=== PATIENT | female | born 1955 | race Caucasian/White ===

== ENCOUNTER 2020-12-28 13:14 | Outpatient (CLI) | payer MEDICARE, SELFPAY | END 2020-12-28 13:15 | disposition home or self-care (01) | LOC: ANHCOVIDVC 13:14 | PROVIDERS: PCP Family Medicine | DX: Z23 Encounter for immunization (principal) | CPT/HCPCS: 0001A; 91300 ==

== ENCOUNTER 2021-01-18 13:14 | Outpatient (CLI) | payer MEDICARE, SELFPAY | END 2021-01-18 13:15 | disposition home or self-care (01) | LOC: ANHCOVIDVC 13:15 | PROVIDERS: PCP Family Medicine | DX: Z23 Encounter for immunization (principal) | CPT/HCPCS: 0002A; 91300 ==

== ENCOUNTER → 2021-02-13 03:01 | Outpatient (CLI) | payer MEDICARE, SELFPAY ==
[2021-02-13 18:14] LABS: SARS-CoV-2 RNA PCR Negative
== END ==
PROVIDERS: PCP Family Medicine; Visit Provider Obstetrics & Gynecology Gynecology
DX: Z01.812 Encounter for preprocedural laboratory examination (principal); Z20.822 Contact with and (suspected) exposure to COVID-19
CPT/HCPCS: C9803; U0003; U0005

== ENCOUNTER 2021-02-16 01:51 | Day surgery (SDC) | payer MEDICARE, SELFPAY ==
[2021-02-09 12:25] VITALS: BMI 56.9
[2021-02-16] MEDS: ACETAMINOPHEN 500 MG TABLET 1000 MG PO (10:45)
[2021-02-16 11:09] VITALS: BP 151/81; PULSE 84; TEMP 36.3; O2SAT 98
[2021-02-16] MEDS: LACTATED RINGERS 1,000 ML 30 ML IV CONT ×2 (11:10→13:14)
[2021-02-16 11:31] LABS: Glucose Point of Care 150 mg/dl (65-105)
--- NOTE | 2021-02-16 11:40 | WPDANESEPPF ---
Anes - Initial Pre Proc Eval Procedure: Operation Date: 02/16/21 12:15 Proposed Procedures p Hysteroscopy Dilation and Curettage - Ruthie Darden MD Date/Time: 02/16/21 11:40 Surgeon: Ruthie Darden MD Pre Op Diagnosis: post menopausal bleeding Patient Data Age: 65 Gender: F Height: 5 ft 8 in Weight: 156 kg Last Vital Signs Temp 36.3 C L 02/16/21 11:09 Pulse 84 02/16/21 11:09 BP 151/81 H 02/16/21 11:09 Pulse Ox 98 02/16/21 11:09 Allergies Allergy/AdvReac Type Severity Reaction Status Date / Time Penicillins Allergy Unknown Rash Verified 02/16/21 10:30 Home Medications Medication Instructions Recorded Confirmed Type blood sugar diagnostic #100 each 07/12/20 Rx lisinopril 2.5 mg tablet See Rx Instructions .ROUTE 08/27/20 02/16/21 Rx .COMPLEX #90 tablet calcium carbonate-vitamin D3 1 tablet PO DAILY 02/09/21 02/16/21 History [Calcium 600 + D(3)] cetirizine [Zyrtec] 10 mg PO DAILY 02/09/21 02/16/21 History fluticasone propionate 2 spray NASAL DAILY 02/09/21 02/16/21 History Laboratory Tests 02/16/21 11:29 POC Capillary Glucose 150 mg/dl H mg/dl (65-105) Patient hx anesthesia problems: none Family hx anesthesia problems: none PMFSH Past Medical History Medical History Asthma Depression Diabetes mellitus Hypertension MVP (mitral valve prolapse) Obstructive sleep apnea Family History Family History Other Carcinoma of colon Family history of thyroid disease Hypertension Social History Social History Smoking packs per day: 1 Smoking cigarettes per day: 20.0 Years smoked: 5 Smoking pack-years: 5.00 Smoking status: Never smoker Tobacco type: cigarettes Second hand tobacco smoke exposure: No Smoking end date: 09/15/79 Alcohol intake: never Living arrangements: alone Spiritual care concerns: No Anes - Eval Final PreProcedure Day of Procedure 02/16/21 11:40 Patient weight: super morbidly obese Heart: regular rate and rhythm Lungs: clear to auscultation Airway: Mallampati scale class II Neurological: alert and oriented Last oral intake: >/= 8 hours ASA classification: III Emergent: no Anesthetic plan: proceed Anesthesia type and monitoring: general GIVS and standard monitoring Informed Consent: The patient's anesthetic plan and its attendant risks and benefits were discussed with the patient/family/POA. Questions were solicited and answers provided to the satisfaction of the patient/family/POA.
--- NOTE | 2021-02-16 12:08 | WPDHPUPDATE1 ---
History and Physical Update Update Date/Time: 02/16/21 12:08 History and Physical has been reviewed, including an updated exam of the patient. There are NO changes in the patient's condition. Risks, benefits, and alternatives have been discussed and questions answered. Patient agrees to proceed with procedure.
--- NOTE | 2021-02-16 12:08 | PM.HPGS ---
History of Present Illness History of Present Illness Consent: Risks, benefits, and alternatives have been discussed and questions answered. Patient agrees to proceed with procedure. Chief complaint: post menopausal bleeding Narrative: Tonie Cummings is a 65 year old female who was new to me February 08, 2021 in the office. She reports 1 year of spotting on and off and then the week prior to seeing me had 2 days of very heavy bleeding. The patient's primary care provider suggested and November of 2020 that she see a dermatology nurse practitioner but the patient declined at that time. She called when she had the onset of heavier bleeding. The patient reports no other complaints. Was recommended that the patient proceed with D&C hysteroscopy. Risks of infection, bleeding, and perforation were reviewed. Possible pathology was discussed. The patient voices understanding and agrees to proceed. Review of Systems Gastrointestinal: Gastrointestinal: Reports abdominal pain Genitourinary: Genitourinary: Reports other (incontinence) Musculoskeletal: Musculoskeletal: Reports arthralgias PMFSH Past Medical History Medical History (Updated 02/16/21 @ 12:13 by Ruthie Darden MD) Asthma Depression Diabetes mellitus Hypertension MVP (mitral valve prolapse) Obstructive sleep apnea Surgical History Surgical History (Updated 02/16/21 @ 12:12 by Ruthie Darden MD) H/O breast biopsy 2018 benign Family History Family History Other Carcinoma of colon Family history of thyroid disease Hypertension Social History Social History Smoking packs per day: 1 Smoking cigarettes per day: 20.0 Years smoked: 5 Smoking pack-years: 5.00 Smoking status: Never smoker Tobacco type: cigarettes Second hand tobacco smoke exposure: No Smoking end date: 09/15/79 Alcohol intake: never Living arrangements: alone Spiritual care concerns: No Meds Home Medications and Allergies Home Medications Medication Instructions Recorded Confirmed Type blood sugar diagnostic #100 each 07/12/20 Rx lisinopril 2.5 mg tablet See Rx Instructions .ROUTE 08/27/20 02/16/21 Rx .COMPLEX #90 tablet calcium carbonate-vitamin D3 1 tablet PO DAILY 02/09/21 02/16/21 History [Calcium 600 + D(3)] cetirizine [Zyrtec] 10 mg PO DAILY 02/09/21 02/16/21 History fluticasone propionate 2 spray NASAL DAILY 02/09/21 02/16/21 History Allergies Allergy/AdvReac Type Severity Reaction Status Date / Time Penicillins Allergy Unknown Rash Verified 02/16/21 10:30 Vital Signs Vital Signs - 24 hr 02/16/21 11:09 Temperature 97.4 F L Pulse Rate 84 Blood Pressure 151/81 H Pulse Oximetry 98 Exam Const: General: no acute distress : External Female Exam: normal external appearance Speculum Exam - Vagina: normal appearance of the vagina Speculum Exam - Cervix: Nulliparous cervix present Bimanual exam- vagina & uterus: normal bimanual exam Bimanual Exam- Adnexa, other: normal adnexae Assessment and Plan Assessment and plan (1) Post-menopausal bleeding: Code(s): N95.0 - Postmenopausal bleeding Status: Acute Assessment and Plan: plan to proceed with hysteroscopy with D&C
[2021-02-16] MEDS: KETOROLAC 30 MG/ML VIAL (*BKC) IV PUSH (12:54)
--- NOTE | 2021-02-16 13:09 | PM.PROC ---
Procedure Note - Detailed Date of procedure: 02/16/21 Pre-op diagnosis: post menopausal bleeding Post-op diagnosis: same Procedure performed: D and C hysteroscopy with MyoSure resection Description of procedure: The patient was taken to the operating room and placed under anesthesia in the dorsal lithotomy position. She was prepped and draped in the usual sterile fashion. The bivalve speculum was placed in the vagina and the cervix grasped on the anterior lip with a tenaculum. The cervix is injected with lidocaine in each quadrant and dilated with Hegar 6. The uterus is sounded to 8cm. The diagnostic hysteroscope was placed with the stated findings. The MyoSure device is opened and placed. Under direct visualization the polyps are removed as well as the thickened area at the fundus. The MyoSure device is removed the sharp curette is used to sharply curette the endometrium until a good uterine cry was noted in all areas. The instruments are removed. The sponge, instrument, and needle counts are correct per the OR staff. Anesthesia: MAC and local Surgeon: Ruthie Darden MD Estimated blood loss (mL): 5 Drains: No Packing: No Pathology: yes (Endometrial curettings and shaving) Complications: No immediate complications Condition: stable Disposition: PACU Findings: Large polyp filling the left half of the endometrium cavity with a smaller polyp on the right sidewall; thickened area at the fundus
[2021-02-16 13:14] VITALS: BP 141/86; PULSE 66; RESP 14; O2SAT 96
[2021-02-16 13:45] VITALS: BP 125/72; PULSE 60; O2SAT 98
[2021-02-16 14:15] VITALS: BP 147/78; PULSE 61
[2021-02-16 14:45] VITALS: BP 150/81; PULSE 56
== END 2021-02-16 14:52 | disposition home or self-care (01) ==
PROVIDERS: PCP Family Medicine; Visit Provider Obstetrics & Gynecology Gynecology
PROC: 0U5B8ZZ Destruction of Endometrium, Via Natural or Artificial Opening Endoscopic (ICD-10-PCS; CPT 58563; principal; 2021-02-16 12:15)
DX: N95.0 Postmenopausal bleeding (principal); N85.01 Benign endometrial hyperplasia; G43.909 Migraine, unspecified, not intractable, without status migrainosus; F32.9 Major depressive disorder, single episode, unspecified; E11.9 Type 2 diabetes mellitus without complications; I34.1 Nonrheumatic mitral (valve) prolapse; G47.33 Obstructive sleep apnea (adult) (pediatric); Z87.891 Personal history of nicotine dependence; E66.01 Morbid (severe) obesity due to excess calories; Z68.43 Body mass index [BMI] 50.0-59.9, adult; I10 Essential (primary) hypertension
CPT/HCPCS: 58558; 82948; 88305; A9270; J1885; J2250; J3010; J7030; J7120

== ENCOUNTER 2021-04-04 14:12 | Outpatient (CLI) | payer MEDICARE, SELFPAY ==
--- NOTE | ~2021-04-04 | MM_ITS ---
EXAMINATION: MM screening [facility] BI w milly HISTORY: Screening TECHNIQUE: Craniocaudal and mediolateral oblique 3-D tomosynthesis images were obtained and synthetic 2-D images were generated. CAD analysis was submitted and interpreted. COMPARISON: Comparison to multiple prior studies sequentially, with oldest reviewed study dated 10/14. BREAST PARENCHYMAL COMPOSITION: There are scattered areas of fibroglandular density. FINDINGS: There are benign bilateral breast calcifications. There is no evidence of suspicious mass, calcification, or architectural distortion to suggest malignancy in either breast. There has been no suspicious interval change. IMPRESSION: 1. No mammographic evidence of malignancy. 2. Recommend routine screening mammography in one year. BI-RADS Category 1: Negative Reviewed, dictated and finalized at location A.
== END 2021-04-04 14:13 | disposition home or self-care (01) ==
LOC: ANHIMG 14:15
PROVIDERS: PCP Family Medicine; Visit Provider Obstetrics & Gynecology Gynecology
DX: Z12.31 Encounter for screening mammogram for malignant neoplasm of breast (principal)
CPT/HCPCS: 77063; 77067

== ENCOUNTER → 2022-01-15 00:23 | Outpatient (CLI) | payer MEDICARE, SELFPAY ==
[2022-01-15 11:39] LABS: SARS-CoV-2 RNA PCR Negative
== END ==
PROVIDERS: PCP Family Medicine; Visit Provider Family Medicine
DX: R50.9 Fever, unspecified (principal); Z20.822 Contact with and (suspected) exposure to COVID-19
CPT/HCPCS: C9803; U0003; U0005

== ENCOUNTER 2022-03-08 12:06 | Emergency (ER) | payer MEDICARE, SELFPAY ==
[2022-03-08 12:15] VITALS: BP 126/76; PULSE 77; RESP 18; TEMP 36.2; O2SAT 100
--- NOTE | 2022-03-08 12:58 | ED.SKABFB ---
HPI - Skin/Abscess/Foreign Bdy General Chief complaint: Skin/Abscess/Foreign Body Stated complaint: insect bite on chest Time Seen by Provider: 03/08/22 12:59 Source: patient, RN notes reviewed and old records reviewed Mode of arrival: ambulatory Limitations: no limitations History of Present Illness HPI narrative: 66 year old female presents to [facility] with complaints of insect bite to her right chest which she noticed this morning. Patient has 1cm scabbed wound to her right upper chest which is itchy and has total area of redness of 8cm X8cm. Patient reports that area is itchy and borrego. Patient reports that she does not know what type of insect bit her or exactly when this occurred. MD complaint: insect bite/sting Related Data Home Medications Medication Instructions Recorded Confirmed calcium carbonate 600 mg-vitamin 1 tablet PO DAILY 02/09/21 03/08/22 D3 10 mcg (400 unit) tablet (Calcium 600 + D(3)) cetirizine 10 mg tablet (Zyrtec) 10 mg PO DAILY 02/09/21 03/08/22 Allergies Allergy/AdvReac Type Severity Reaction Status Date / Time Penicillins Allergy Mild Rash Verified 03/08/22 12:08 Review of Systems Review of Systems: CONSTITUTIONAL: Denies fever, chills, or sweats. EYES: Denies visual changes, redness, or discharge. ENT: Denies rhinorrhea, congestion, sore throat, or otalgia. CARDIOVASCULAR: Denies chest pain, palpitations, or edema. RESPIRATORY: Denies cough or dyspnea. GASTROINTESTINAL: Denies abdominal pain, nausea, vomiting, or diarrhea. GENITOURINARY: Denies dysuria or hematuria. SKIN: Insect bite to right upper chest with surrounding redness with itching. MUSCULOSKELETAL: Denies back pain, joint pain, or myalgia. NEUROLOGIC: Denies headache, numbness, or weakness. PSYCHIATRIC: Denies anxiety or depression. All systems reviewed & are unremarkable except as noted in HPI and below PMFSH Past Medical History Medical History Allergic rhinitis Asthma Depression Diabetes mellitus Hypertension MVP (mitral valve prolapse) Obesity, morbid, BMI 50 or higher Obstructive sleep apnea Surgical History Surgical History H/O breast biopsy 2018 benign H/O left nephrectomy H/O total hysterectomy Family History Family History Other Carcinoma of colon Family history of thyroid disease Hypertension Social History Social History Smoking packs per day: 1 Smoking cigarettes per day: 20.0 Years smoked: 5 Smoking pack-years: 5.00 Smoking status: Former smoker Tobacco type: cigarettes Second hand tobacco smoke exposure: No Smoking end date: 09/15/79 Alcohol intake: never Substance use: never Substance use type: does not use Spiritual care concerns: No Comments At time of signature, agree with nursing past medical, surgical, social and family history. There is no relevant family history pertinent to the presenting complaint Exam Narrative: GENERAL: Well-appearing, well-nourished, obese and in no acute distress. HEAD: Normocephalic, atraumatic. EYES: PERRLA and EOMI. ENT: Nares clear, no rhinorrhea or epistaxis. Mucous membranes moist.TM's normal with good light reflex, throat pink with no lesions or exudates, no tonsil enlargement NECK: Supple.no lymphadenopathy CHEST: Clear to auscultation. No respiratory distress.SAO2 100% on room air HEART: Regular rate and rhythm. No murmur heard. Normal peripheral pulses. ABDOMEN: Soft, nontender, nondistended, normal active bowel sounds. EXTREMITIES: Normal range of motion. No edema. SKIN: Warm, dry, 1cm round scabbed lesion to right upper chest with total area of surrounding redness 8cm X 8cm with no induration of tissue or welping, itching NEURO: No focal deficits. Alert and oriented x3. Course Course Level
== END 2022-03-08 13:18 | disposition home or self-care (01) ==
PROVIDERS: Emergency Provider Registered Nurse; PCP Family Medicine
DX: L03.313 Cellulitis of chest wall (principal); S20.361A Insect bite (nonvenomous) of right front wall of thorax, initial encounter; W57.XXXA Bitten or stung by nonvenomous insect and other nonvenomous arthropods, initial encounter; Z87.891 Personal history of nicotine dependence; J45.909 Unspecified asthma, uncomplicated; E11.9 Type 2 diabetes mellitus without complications; I10 Essential (primary) hypertension; I34.1 Nonrheumatic mitral (valve) prolapse; E66.01 Morbid (severe) obesity due to excess calories; Z68.43 Body mass index [BMI] 50.0-59.9, adult; G47.33 Obstructive sleep apnea (adult) (pediatric); Z90.5 Acquired absence of kidney
CPT/HCPCS: 99213; G0463

== ENCOUNTER 2022-03-10 14:26 | Emergency (ER) | payer MEDICARE, SELFPAY ==
[2022-03-10 14:33] VITALS: BP 123/74; PULSE 73; RESP 18; TEMP 36.2; O2SAT 98
--- NOTE | 2022-03-10 14:57 | ED.GENADULT ---
HPI - General Adult General Chief complaint: Allergic Reaction Stated complaint: allergic reaction Time Seen by Provider: 03/10/22 14:40 History of Present Illness HPI narrative: 66-year-old female presenting to the emergency department for evaluation of allergic drug rash secondary to Bactrim. Patient was noticed to have a bug bite on her right chest a few days ago. Patient had follow-up with her primary care physician was started on Bactrim. Patient had no prior known allergies to Bactrim. Patient states after taking the Bactrim yesterday she did have increased rash on her arms and chest. Patient did not take any Bactrim today and states she has had an improvement of the rash. Patient denies any chest pain or shortness of breath. Patient denies any associated nausea vomiting diarrhea. Patient did not take any Benadryl for her Bactrim drug rash. Patient states that the bug bite to the right chest has improved as far as the surrounding erythema has minimized but she does have a central white core that is present but has also shrunk in size. Related Data Home Medications Medication Instructions Recorded Confirmed calcium carbonate 600 mg-vitamin 1 tablet PO DAILY 02/09/21 03/08/22 D3 10 mcg (400 unit) tablet (Calcium 600 + D(3)) cetirizine 10 mg tablet (Zyrtec) 10 mg PO DAILY 02/09/21 03/08/22 Allergies Allergy/AdvReac Type Severity Reaction Status Date / Time Penicillins Allergy Mild Rash Verified 03/10/22 14:43 sulfamethoxazole AdvReac Hives Verified 03/10/22 14:44 [From Bactrim] trimethoprim [From Bactrim] AdvReac Hives Verified 03/10/22 14:44 Review of Systems Review of Systems: CONSTITUTIONAL: Denies fever, chills, or sweats. EYES: Denies visual changes, redness, or discharge. ENT: Denies rhinorrhea, congestion, sore throat, or otalgia. CARDIOVASCULAR: Denies chest pain, palpitations, or edema. RESPIRATORY: Denies cough or dyspnea. GASTROINTESTINAL: Denies abdominal pain, nausea, vomiting, or diarrhea. GENITOURINARY: Denies dysuria or hematuria. SKIN: See HPI MUSCULOSKELETAL: Denies back pain, joint pain, or myalgia. NEUROLOGIC: Denies headache, numbness, or weakness. [facility] Past Medical History Medical History Allergic rhinitis Asthma Depression Diabetes mellitus Hypertension MVP (mitral valve prolapse) Obesity, morbid, BMI 50 or higher Obstructive sleep apnea Surgical History Surgical History H/O breast biopsy 2018 benign H/O left nephrectomy H/O total hysterectomy Family History Family History Other Carcinoma of colon Family history of thyroid disease Hypertension Social History Social History Smoking packs per day: 1 Smoking cigarettes per day: 20.0 Years smoked: 5 Smoking pack-years: 5.00 Smoking status: Former smoker Tobacco type: cigarettes Second hand tobacco smoke exposure: No Smoking end date: 09/15/79 Alcohol intake: never Substance use: never Substance use type: does not use Spiritual care concerns: No Exam Narrative: APPEARANCE: Well appearing, no pain, no distress, well-nourished. HEAD: normocephalic, atraumatic. EYES: PERRLA/EOMI, conjunctivae clear. NOSE: Normal no drainage THROAT: Pharynx clear, no exudate. NECK: Supple. No adenopathy, no masses. RESPIRATORY: Airway patent, respirations nonlabored. Clear to auscultation bilaterally, no rales, rhonchi, wheezing. CARDIOVASCULAR: Regular rate and rhythm without murmurs rubs or gallops. ABDOMINAL: Soft, nontender, nondistended, normal bowel sounds MUSCULOSKELETAL: Moves all extremities. Strength/ROM intact, No edema, No calf tenderness. NEURO: Alert. Cranial nerves II through XII intact. SKIN: Cellulitic appearing rash to right chest PSYCHIATRIC: Normal affect/m
[2022-03-10] MEDS: CEPHALEXIN 250 MG CAPSULE PO (15:15)
== END 2022-03-10 15:19 | disposition home or self-care (01) ==
PROVIDERS: Emergency Provider Emergency Medicine; PCP Family Medicine
DX: L27.0 Generalized skin eruption due to drugs and medicaments taken internally (principal); T36.8X5A Adverse effect of other systemic antibiotics, initial encounter; L03.313 Cellulitis of chest wall; J45.909 Unspecified asthma, uncomplicated; E11.9 Type 2 diabetes mellitus without complications; I10 Essential (primary) hypertension; I34.1 Nonrheumatic mitral (valve) prolapse; G47.33 Obstructive sleep apnea (adult) (pediatric); E66.01 Morbid (severe) obesity due to excess calories; Z68.43 Body mass index [BMI] 50.0-59.9, adult
CPT/HCPCS: 99283; A9270

== ENCOUNTER 2022-06-19 09:18 | Outpatient (CLI) | payer MEDICARE, SELFPAY ==
--- NOTE | ~2022-06-19 | DEXA_ITS ---
Bone Density Report Name: NIMCO GORE Age: 67 Sex: Female Ethnicity: White Date of : 1955 Indication: postmenopausal; screening for osteoporosis; height loss; hysterectomy; Referring Provider: LILY VILLANUEVA Study: Bone densitometry was performed. Exam Date: June 19, 2022 Accession number: [id number] Bone Density: Region BMD T-score Z-score Classification AP Spine(L1-L4) 1.086 0.4 2.4 Normal Femoral Neck (Left) 0.677 -1.5 0.2 Osteopenia Total Hip (Left) 0.940 0.0 1.4 Normal Femoral Neck (Right) 0.749 -0.9 0.9 Normal Total Hip (Right) 0.955 0.1 1.6 Normal Total Hip Mean 0.948 0.1 1.5 Normal World Health Organization criteria for BMD impression classify patients as: Normal (T-score at or above -1.0), Osteopenia (T-score between -1.0 and -2.5), or Osteoporosis (T-score at or below -2.5). 10-year Fracture Risk(1): Major Osteoporotic Fracture 8.4% Hip Fracture 1.0% Reported Risk Factors: [place] (), Neck BMD=0.677, BMI=43.2 Input outside FRAX(R) limits. Adjusted to:Sjfmtx=298 kg (1) FRAX(R) Version 3.08. Fracture probability calculated for an untreated patient. Fracture probability may be lower if the patient has received treatment. Previous Exams: Region Exam Age BMD T-score BMD Change BMD Change Date g/cm2 vs Baseline vs Previous AP Spine (L1-L4) 06/19/2022 67 1.086 0.4 -0.012 (-1.1%) -0.012 (-1.1%) 06/08/2019 64 1.098 0.5 Total Hip(Left) 06/19/2022 67 0.940 0.0 -0.319 (-25.3% -0.319 (-25.3% 06/08/2019 64 1.259 2.6 Total Hip(Right) 06/19/2022 67 0.955 0.1 -0.055 (-5.4%) -0.055 (-5.4%) 06/08/2019 64 1.009 0.6 *Denotes significance at 95% confidence level, LSC for AP Spine = 0.022 g/cm2, LSC for Total Hip = 0.027 g/cm2 # Denotes dissimilar scan types or analysis methods Clinical Information Provided by Patient: Has the following medical conditions: Hysterectomy Patient maximum height was 69.5 Menopause Age: 61 No regular weight bearing exercise Onset of menses at age 9 Number of children 0 Impression: The patient has low bone mass, based on the Left Femoral Neck T-score. The patient has an estimated ten-year risk of hip fracture of 1% and an estimated ten-year risk of major fracture of 8.4%, based on the WHO FRAX algorithm. No significant bone loss was observed. Discussion: BONE DENSITY IS LOW AT ONE OR MORE SKELETAL SITES. This patient's lowe
--- NOTE | ~2022-06-19 | MM_ITS ---
EXAMINATION: MM screening [facility] BI w milly HISTORY: Screening mammogram TECHNIQUE: Craniocaudal and mediolateral oblique 3-D tomosynthesis images were obtained and synthetic 2-D images were generated. CAD analysis was submitted and interpreted. COMPARISON: 04/04/2021, 04/29/2018, 04/23/2018, 10/23/2012, 10/14/2012 BREAST PARENCHYMAL COMPOSITION: There are scattered areas of fibroglandular density. FINDINGS: Scattered benign-appearing calcifications are present. No suspicious mass, calcification, o r architectural distortion are identified in either breast to suggest malignancy. There has been no s uspicious interval change. IMPRESSION: 1. No mammographic evidence of malignancy. 2. Recommend routine screening mammography in one year. BI-RADS Category 2: Benign finding(s). Reviewed, dictated and finalized at location A.
== END 2022-06-19 09:19 | disposition home or self-care (01) ==
PROVIDERS: PCP Family Medicine; Visit Provider Obstetrics & Gynecology Gynecology
DX: Z12.31 Encounter for screening mammogram for malignant neoplasm of breast (principal); Z78.0 Asymptomatic menopausal state; M85.88 Other specified disorders of bone density and structure, other site; M85.852 Other specified disorders of bone density and structure, left thigh
CPT/HCPCS: 77063; 77067; 77080

== ENCOUNTER 2023-01-02 01:30 | Day surgery (SDC) | payer MEDICARE, SELFPAY ==
[2022-12-26 14:58] VITALS: BMI 56.0
[2023-01-02 12:05] VITALS: BP 122/76; PULSE 73; RESP 18; TEMP 36.4; O2SAT 97
[2023-01-02 12:19] VITALS: BMI 56.6
[2023-01-02] MEDS: LACTATED RINGERS 1,000 ML 150 ML IV CONT (12:34)
[2023-01-02 12:35] LABS: Glucose Point of Care 155 mg/dl (65-105)
--- NOTE | 2023-01-02 12:40 | PM.HPGS ---
History of Present Illness History of Present Illness Consent: Risks, benefits, and alternatives have been discussed and questions answered. Patient agrees to proceed with procedure. Chief complaint: history of polyp of colon Narrative: Tonie Cummings is a 67 year old female Presents for screening colonoscopy. Patient has a history of colon polyps most recently 2018. Patient has a family history of colon cancer in her father. Currently patient reports that her bowel habits are normal. She denies abdominal pain. She has had no bleeding. Patient presents today for surveillance screening colonoscopy. Patient's past history is significant for both uterine and bladder cancer. Review of Systems Review of Systems: Review of systems noncontributory. [facility] Past Medical History Medical History Allergic rhinitis Asthma Chronic renal insufficiency, stage III (moderate) Depression Diabetes mellitus Hypertension MVP (mitral valve prolapse) Obesity, morbid, BMI 50 or higher Obstructive sleep apnea Surgical History Surgical History H/O breast biopsy 2018 benign H/O left nephrectomy H/O total hysterectomy Family History Family History Other Carcinoma of colon Family history of thyroid disease Hypertension Social History Social History Smoking packs per day: 1 Smoking cigarettes per day: 20.0 Years smoked: 5 Smoking pack-years: 5.00 Smoking status: Former smoker Tobacco type: cigarettes Second hand tobacco smoke exposure: No Smoking end date: 09/15/79 Alcohol intake: current Alcohol use details: rarely Substance use: never Substance use type: does not use Living arrangements: alone Spiritual care concerns: No Meds Home Medications and Allergies Home Medications Medication Instructions Recorded Confirmed Type calcium carbonate 600 mg-vitamin 1 tablet PO BID 02/09/21 01/02/23 History D3 10 mcg (400 unit) tablet (Calcium 600 + D(3)) cetirizine 10 mg tablet (Zyrtec) 10 mg PO DAILY 02/09/21 01/02/23 History blood sugar diagnostic (FreeStyle #100 ea 07/18/22 12/24/22 Rx Lite Strips) fluticasone propionate 50 2 spray intranasal DAILY 12/26/22 01/02/23 History mcg/actuation nasal spray,suspension lisinopril 2.5 mg tablet 2.5 mg PO DAILY 12/26/22 01/02/23 History magnesium 500 mg tablet 500 mg PO DAILY 12/26/22 12/26/22 History multivitamin with minerals-folic 1 tablet PO DAILY 12/26/22 01/02/23 History acid 0.4 mg tablet Allergies Allergy/AdvReac Type Severity Reaction Status Date / Time Penicillins Allergy Mild Rash Verified 01/02/23 12:15 sulfamethoxazole AdvReac Hives Verified 01/02/23 12:15 [From Bactrim] trimethoprim [From Bactrim] AdvReac Hives Verified 01/02/23 12:15 Exam Narrative: Physical exam reveals patient to be alert. Vital signs stable. HEENT exam is unremarkable. Patient is anicteric. Lungs are clear to auscultation and percussion. Heart is without murmur or extra sounds. Abdomen is obese. Bowel sounds are present soft nontender with no organomegaly. Digital external rectal exam is normal. Assessment and Plan Assessment and plan (1) Family history of colon cancer in father: Code(s): Z80.0 - Family history of malignant neoplasm of digestive organs Status: Acute Assessment and Plan: Patient's father had colon cancer. For this reason screening colonoscopy at 5 year intervals is advised. (2) History of colon polyps: Code(s): Z86.010 - Personal history of colonic polyps Status: Acute Assessment and Plan: Patient has been found to have colon polyps on previous colonoscopy. Most recently 2018. Plan for surveillance colonoscopy at 5 year intervals.
--- NOTE | 2023-01-02 12:54 | WPDANESEPPF ---
Anes - Initial Pre Proc Eval Procedure: Operation Date: 01/02/23 13:30 Proposed Procedures p Colonoscopy - Rhys Lee MD Date/Time: 01/02/23 12:54 Surgeon: Rhys Lee MD Pre Op Diagnosis: history of polyp of colon Patient Data Age: 67 Gender: F Height: 1.73 m Weight: 169 kg Allergies Allergy/AdvReac Type Severity Reaction Status Date / Time Penicillins Allergy Mild Rash Verified 01/02/23 12:15 sulfamethoxazole AdvReac Hives Verified 01/02/23 12:15 [From Bactrim] trimethoprim [From Bactrim] AdvReac Hives Verified 01/02/23 12:15 Home Medications Medication Instructions Recorded Confirmed Type calcium carbonate 600 mg-vitamin 1 tablet PO BID 02/09/21 01/02/23 History D3 10 mcg (400 unit) tablet (Calcium 600 + D(3)) cetirizine 10 mg tablet (Zyrtec) 10 mg PO DAILY 02/09/21 01/02/23 History blood sugar diagnostic (FreeStyle #100 ea 07/18/22 12/24/22 Rx Lite Strips) fluticasone propionate 50 2 spray intranasal DAILY 12/26/22 01/02/23 History mcg/actuation nasal spray,suspension lisinopril 2.5 mg tablet 2.5 mg PO DAILY 12/26/22 01/02/23 History magnesium 500 mg tablet 500 mg PO DAILY 12/26/22 12/26/22 History multivitamin with minerals-folic 1 tablet PO DAILY 12/26/22 01/02/23 History acid 0.4 mg tablet Laboratory Tests 01/02/23 12:32 POC Capillary Glucose 155 mg/dl H mg/dl (65-105) Patient hx anesthesia problems: none Family hx anesthesia problems: none Results Review: All pre-operative results and documents have been reviewed as part of the pre-operative evaluation. [facility] Past Medical History Medical History Allergic rhinitis Asthma Chronic renal insufficiency, stage III (moderate) Depression Diabetes mellitus Hypertension MVP (mitral valve prolapse) Obesity, morbid, BMI 50 or higher Obstructive sleep apnea Surgical History Surgical History H/O breast biopsy 2018 benign H/O left nephrectomy H/O total hysterectomy Family History Family History Other Carcinoma of colon Family history of thyroid disease Hypertension Social History Social History Smoking packs per day: 1 Smoking cigarettes per day: 20.0 Years smoked: 5 Smoking pack-years: 5.00 Smoking status: Former smoker Tobacco type: cigarettes Second hand tobacco smoke exposure: No Smoking end date: 09/15/79 Alcohol intake: current Alcohol use details: rarely Substance use: never Substance use type: does not use Living arrangements: alone Spiritual care concerns: No Anes - Eval Final PreProcedure Day of Procedure 01/02/23 12:54 Patient weight: super morbidly obese Heart: regular rate and rhythm Lungs: clear to auscultation Airway: Mallampati scale class III Neurological: alert and oriented Last oral intake: >/= 8 hours ASA classification: IV Emergent: no Anesthetic plan: proceed Anesthesia type and monitoring: general GIVS and standard monitoring Results Review: All pre-operative results and documents have been reviewed as part of the pre-operative evaluation. Informed Consent: The patient's anesthetic plan and its attendant risks and benefits were discussed with the patient/family/POA. Questions were solicited and answers provided to the satisfaction of the patient/family/POA.
[2023-01-02 13:46] VITALS: BP 132/70; PULSE 74; RESP 18; O2SAT 92
[2023-01-02 13:56] VITALS: BP 130/76; PULSE 63; RESP 20; O2SAT 99
[2023-01-02 14:06] VITALS: BP 124/76; PULSE 62; RESP 18; O2SAT 100
== END 2023-01-02 14:18 | disposition home or self-care (01) ==
PROVIDERS: PCP Family Medicine; Visit Provider Internal Medicine Gastroenterology
PROC: 0DJD8ZZ Inspection of Lower Intestinal Tract, Via Natural or Artificial Opening Endoscopic (ICD-10-PCS; CPT 45378; principal; 2023-01-02 13:30)
DX: Z12.11 Encounter for screening for malignant neoplasm of colon (principal); D12.2 Benign neoplasm of ascending colon; D12.4 Benign neoplasm of descending colon; K52.9 Noninfective gastroenteritis and colitis, unspecified; K64.8 Other hemorrhoids; K57.30 Diverticulosis of large intestine without perforation or abscess without bleeding; Z80.0 Family history of malignant neoplasm of digestive organs; I12.9 Hypertensive chronic kidney disease with stage 1 through stage 4 chronic kidney disease, or unspecified chronic kidney disease; E11.22 Type 2 diabetes mellitus with diabetic chronic kidney disease; N18.30 Chronic kidney disease, stage 3 unspecified; J45.909 Unspecified asthma, uncomplicated; G47.33 Obstructive sleep apnea (adult) (pediatric); I34.1 Nonrheumatic mitral (valve) prolapse; E66.01 Morbid (severe) obesity due to excess calories; Z68.43 Body mass index [BMI] 50.0-59.9, adult; Z90.5 Acquired absence of kidney; Z87.891 Personal history of nicotine dependence
CPT/HCPCS: 45385; 45380; 82948; 88305; J2704; J7120

== ENCOUNTER 2023-01-07 14:18 | Outpatient (RCR) | payer MEDICARE, SELFPAY ==
[2023-01-07 15:20] VITALS: BMI 55.3
[2023-01-07 15:21] VITALS: BMI 55.3
== END 2023-03-24 12:26 | disposition home or self-care (01) ==
LOC: ANHDMC 14:18
PROVIDERS: PCP Family Medicine; Visit Provider Family Medicine
DX: E11.65 Type 2 diabetes mellitus with hyperglycemia (principal); Z71.3 Dietary counseling and surveillance
CPT/HCPCS: 97802

== ENCOUNTER 2023-03-27 13:22 | Outpatient (RCR) | payer MEDICARE, SELFPAY ==
--- NOTE | 2023-03-27 14:24 | PTOPEVAL1 ---
Assessment and note entered by Nikolay Henriquez Evaluation Information Assessment Status Evaluation Diagnosis dizziness Onset 03/26/23 Subjective Information Pt. reports that she has delt with dizziness for many years. She reports that she feels that she is off balance. 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 Pt. does not recall any falls recently , but has to move very slow and uses a wide DONN. She notices that she frequently reaches for a handrail when walking the halls of her house. She does recall a hx of positional vertigo and notices it with rolling over in bed. She reports that despite her dizziness, the unsteadiness is her biggest concern. she continues to complete all IADL's despite her balance. Pt report that her main priority for therapy is to improve her balance. Reported Pain Level Pain Score 0: Self Report Assessment PT Clinical Summary Pt. is a 67 year old female who enters the clinic with dizziness. Pt. presents with somatosensory deconditioning on this date and is negative for positional vertigo. Continued skilled PT is indicated in order to address gait, l.e. strength, balance, and functional mobility to allow for improved efficiency and safety with IADL performance. Plan of Care Interventions Gait Training,Manual Therapy,Neuro Re-education, Patient/Caregiver Educati,Therapeutic Activities, Therapeutic Exercise,Self-Care/Home Management PT Services Indicated Yes Treatment Frequency and 3x/week x 12 visits Duration These treatments will address the objective and functional deficits as defined above. The patient will be advanced safely and appropriately in order for the patient to progress towards his/her prior level of function. Additional exercises will be introduced and as well as a comprehensive home exercise program upon discharge, if needed, ?to ensure carryover of functional gains achieved in the clinic. This treatment plan has been reviewed and agreement upon by the patient.
--- NOTE | 2023-03-27 14:25 | OPREHPOC ---
Outpatient Therapy Plan of Care This is a Multidisciplinary Plan of Care that may contain components documented by all disciplines (PT, OT, and ST.) PT Problem 1 PT Problem #1 Knowledge Deficit PT Goal 1 Goal Pt. will be independent with a HEP addressing strength and mobility. Target Visit 2 PT Problem 2 PT Problem #2 Impaired Balance PT Goal 1 Goal Pt. will increase her tinetti score to 24 or greater Target Visit 12 PT Goal 2 Goal Pt. will be able to maintain standing eyes closed for 1 minute without LOB or need for assist. Target Visit 6 PT Problem 3 PT Problem #3 Impaired Gait PT Goal 1 Goal Pt. will demonstrate the ability to ambulate a distance of 1000' or greater avoiding trendelenburg pattern at the bilateral l.e.
--- NOTE | 2023-04-07 08:23 | PCPTNOTE ---
Pt. canceled 04/07/23 but did not give a reason.
--- NOTE | 2023-04-09 17:33 | PCPTNOTE ---
Pt. canceled 04/09/23 appointment but gave no reason.
--- NOTE | 2023-04-16 12:41 | PTOPPROGNS ---
Assessment and note entered by Nikolay [facility] Evaluation Information Assessment Status Discharge - Pt Not Presen Diagnosis dizziness Assessment PT Clinical Summary Pt. attended her initial evaluation on 03/27/23. she contacted the clinic on 04/14/23 stating that her schedule did not allow her to attend further Rx. She will be discharged from our care at this time. Plan of Care These treatments will address the objective and functional deficits as defined above. The patient will be advanced safely and appropriately in order for the patient to progress towards his/her prior level of function. Additional exercises will be introduced and as well as a comprehensive home exercise program upon discharge, if needed, ?to ensure carryover of functional gains achieved in the clinic. This treatment plan has been reviewed and agreement upon by the patient.
== END 2023-04-16 14:10 | disposition home or self-care (01) ==
LOC: ANHPT 13:22
PROVIDERS: PCP Family Medicine
DX: R42 Dizziness and giddiness (principal)
CPT/HCPCS: 97110; 97112; 97161

== ENCOUNTER 2023-12-03 09:15 | Outpatient (CLI) | payer MEDICARE, SELFPAY ==
--- NOTE | ~2023-12-03 | MM_ITS ---
EXAMINATION: MM screening vicky BI w milly HISTORY: Screening TECHNIQUE: Craniocaudal and mediolateral oblique 3-D tomosynthesis images were obtained and synthetic 2-D images were generated. CAD analysis was submitted and interpreted. COMPARISON: Comparison to multiple prior studies sequentially, with oldest reviewed study dated 05/2018. BREAST PARENCHYMAL COMPOSITION: Not dense: There are scattered areas of fibroglandular density. FINDINGS: Bilateral breast calcifications and asymmetries are unchanged. There is no evidence of susp icious mass, calcification, or architectural distortion to suggest malignancy in either breast. There has been no suspicious interval change. IMPRESSION: 1. No mammographic evidence of malignancy. 2. Recommend routine screening mammography in one year. BI-RADS Category 2: Benign finding(s). Reviewed, dictated and finalized at location A.
== END 2023-12-03 09:16 | disposition home or self-care (01) ==
LOC: ANHIMG 09:16
PROVIDERS: PCP Family Medicine; Visit Provider Family Medicine
DX: Z12.31 Encounter for screening mammogram for malignant neoplasm of breast (principal)
CPT/HCPCS: 77063; 77067